=== PATIENT | female | born 1995 | race Caucasian/White ===

== ENCOUNTER → 2022-05-21 12:35 | Outpatient (CLI) | payer OTHER, SELFPAY ==
[2022-05-21 14:11] LABS: HCG,Quantitative 13598 mIU/ml (0-5.42)
== END ==
PROVIDERS: Visit Provider Nurse Practitioner Obstetrics & Gynecology
DX: N92.6 Irregular menstruation, unspecified (principal); Z32.00 Encounter for pregnancy test, result unknown
CPT/HCPCS: 36415; 84144; 84702

== ENCOUNTER → 2022-05-27 16:57 | Outpatient (CLI) | payer OTHER, SELFPAY | PROVIDERS: Visit Provider Nurse Practitioner Obstetrics & Gynecology | DX: Z34.90 Encounter for supervision of normal pregnancy, unspecified, unspecified trimester (principal) | CPT/HCPCS: 87086 ==

== ENCOUNTER → 2022-06-30 16:51 | Outpatient (CLI) | payer OTHER, SELFPAY ==
--- NOTE | 2022-06-30 17:05 | US_ITS ---
FINAL REPORT CLINICAL HISTORY: US OB before 14 wks for Dates FINDINGS: Sonographic images of the pelvis were obtained. There is a single living intrauterine . [place]-rump length measures 45 mm corresponding to 11 week 3 day gestation. Heartbeat is identified at 167 beats per minute. The right ovary measures up to 2.2 cm. The left ovary measures up to 1.7 cm. There is a 2.3 cm probable uterine fibroid. Small amount of free fluid is identified. IMPRESSION: Single living intrauterine with average ultrasound age of 11 week 3 days. Reviewed, Interpreted and Dictated by Panchito Byrnes III, MD Transcribed by Alivia Oconnor Authenticated and [facility]
== END ==
PROVIDERS: Visit Provider Nurse Practitioner Obstetrics & Gynecology
DX: O26.841 Uterine size-date discrepancy, first trimester (principal)
CPT/HCPCS: 76801

== ENCOUNTER → 2022-07-27 16:35 | Outpatient (CLI) | payer OTHER, SELFPAY ==
[2022-07-27 17:53] LABS: Basophils % 0.2 % (0.1-2.0); Eosinophils # 0.3 K/mm3 (0.0-0.4); Eosinophils % 1.9 % (0.1-12.0); Hematocrit 41.9 % (37.0-47.0); Hemoglobin 14.1 g/dL (12.2-16.2); Lymphocytes # 1.9 K/mm3 (0.7-4.5); Lymphocytes % 13.2 % (10-50); Mean Corpuscular HGB Conc 33.7 g/dL (31.8-35.4); Mean Corpuscular Hemoglobin 30.1 pg (27.0-31.2); Mean Corpuscular Volume 89.2 fl (81-99); Mean Platelet Volume 8.7 fl (7.4-10.4); Monocytes # 0.9 K/mm3 (0.1-1.0); Neutrophils # 11.6 K/mm3 (1.8-7.8); Neutrophils % 78.8 % (37.0-80.0); Platelet Count 261 K/mm3 (142-424); Red Blood Count 4.69 M/mm3 (4.20-5.40); Red Cell Distribution Width 12.7 % (11.5-17.5); White Blood Count 14.7 K/mm3 (4.8-10.8)
[2022-07-29 10:08] LABS: Rubella Antibodies, IgG 2.55 index (Immune >0.99)
[2022-07-29 11:26] LABS: Rapid Plasma Reagin Ab Titer Non Reactive (NonRea<1:1)
[2022-08-07 20:35] LABS: HIV Screen 4th Generation wRfx Non Reactive
[2022-08-07 20:36] LABS: Hepatitis B Surface Antigen Negative; Hepatitis C Antibody Non Reactive
== END ==
PROVIDERS: Visit Provider Nurse Practitioner Obstetrics & Gynecology
DX: Z34.90 Encounter for supervision of normal pregnancy, unspecified, unspecified trimester (principal)
CPT/HCPCS: 36415; 85025; 86593; 86703; 86762; 86850; 87340; 87380; G0432

== ENCOUNTER → 2022-09-09 13:50 | Outpatient (CLI) | payer OTHER, SELFPAY ==
--- NOTE | 2022-09-09 13:54 | US_ITS ---
PROCEDURE: US OB /MATERNAL DETAIL CLINICAL INDICATION: 20 week anatomy scan COMPARISON: No exams were available for comparison FINDINGS: Single viable intrauterine gestation. Breech position. Placenta: Anteriorplacenta grade 0. There is complete previa of the anterior placenta. This is seen with the transvaginal probe. There is average amount fluid. Maximum vertical pocket 6.2 cm The cervix appears satisfactory. Closed and measuring 3.8 cm in length. Complete survey performed and was unremarkable on the submitted images as in PACS. No discrete anomalies identified on survey imaging by technologist. Active fetus. Three-vessel cord with satisfactory umbilical cord insertion. 4- chamber heart noted. RVOT, LVOT, aortic arch appear normal. Survey of brain & ventricles Unremarkable. Cerebellum, cisterna magna, thalamus, choroid plexus appear normal. Face and neck survey unremarkable. Nose and lips appear normal. Profile normal. Nasion normal. Diaphragm and chest views unremarkable. Abdomen: Both kidneys noted and unremarkable. Stomach noted and satisfactory. Bladder visualized. Spine: Survey of the spine satisfactory with no anomalies identified nor imaged. Upper, thoracic and lower spine appear normal. Both arms and legs noted. Amniotic Fluid: Adequate. Maternal adnexa: No significant findings. Measurements: Average ultrasound age 21weeks 2days. Gestational Age 21weeks 2days Estimated due date by ultrasound age 1001/18/2023. Estimated weight 418g BPD = 21weeks 3days OFD = 21weeks 5days HC = 20weeks 6days AC = 22weeks FL = 20weeks 6days Growth Percentile= 48 percent Heart Rate = 135bpm Cerebellum = 20weeks 4days Humerus = 21weeks 1day HC/AC is 1.09 CI is 0.77 FL/BPD is 0.67 FL/AC is 0.2 IMPRESSION: 1. Viable fetus with normal anatomical scan. 2. Fetus is in the breech presentation with an anterior placenta. 3. THERE IS COMPLETE PLACENTA PREVIA. 4. Size and dates are appropriate for the assigned gestational age. Dictated by: Alireza Marrufo MD 09/11/2022 10:30 Alireza Marrufo MD in [place] 09/11/2022 10:30
== END ==
PROVIDERS: PCP Nurse Practitioner Obstetrics & Gynecology; Visit Provider Nurse Practitioner Obstetrics & Gynecology
DX: Z34.92 Encounter for supervision of normal pregnancy, unspecified, second trimester (principal); Z3A.20 20 weeks gestation of pregnancy
CPT/HCPCS: 76811

== ENCOUNTER → 2022-10-18 10:16 | Outpatient (CLI) | payer OTHER, SELFPAY ==
[2022-10-18 10:37] LABS: Basophils # 0.1 K/mm3 (0-0.2); Basophils % 0.5 % (0.1-2.0); Eosinophils # 0.3 K/mm3 (0.0-0.4); Eosinophils % 2.1 % (0.1-12.0); Hematocrit 36.4 % (37.0-47.0); Hemoglobin 11.9 g/dL (12.2-16.2); Lymphocytes # 2.2 K/mm3 (0.7-4.5); Lymphocytes % 15.9 % (10-50); Mean Corpuscular HGB Conc 32.7 g/dL (31.8-35.4); Mean Corpuscular Hemoglobin 30.1 pg (27.0-31.2); Mean Platelet Volume 8.5 fl (7.4-10.4); Monocytes % 7.4 % (1.7-9.3); Neutrophils # 10.3 K/mm3 (1.8-7.8); Neutrophils % 74.1 % (37.0-80.0); Platelet Count 247 K/mm3 (142-424); Red Blood Count 3.96 M/mm3 (4.20-5.40); Red Cell Distribution Width 13.3 % (11.5-17.5); White Blood Count 13.9 K/mm3 (4.8-10.8)
[2022-10-18 10:45] LABS: Glucose,Fasting 85 mg/dl (74-100)
[2022-10-18 12:31] LABS: Glucose 1 Hour 110 mg/dL (74-100)
== END ==
PROVIDERS: Visit Provider Nurse Practitioner Obstetrics & Gynecology
DX: Z34.92 Encounter for supervision of normal pregnancy, unspecified, second trimester (principal); Z3A.27 27 weeks gestation of pregnancy
CPT/HCPCS: 36415; 82951; 85025

== ENCOUNTER → 2022-10-25 13:04 | Outpatient (CLI) | payer OTHER, SELFPAY ==
--- NOTE | 2022-10-25 13:05 | US_ITS ---
PROCEDURE: US OB BIOPHYSICAL PROFILE CLINICAL INDICATION: follow up to growth and placenta previa COMPARISON: 09/09/2022 anatomy scan. FINDINGS: Transabdominal and transvaginal sonographic images were obtained of the uterus. From her established due date she is 28weeks 1day. The following parameters are obtained: Viable fetus in the breech presentation with an anterior placenta grade 2. There continues to be placenta previa with the placenta going beyond the cervix by approximately 2 cm on transvaginal views. Cervix measures 3.8 cm. Average ultrasound age is 28weeks 4days. Estimated due date by ultrasound is 01/13/2023. Estimated weight is 2lb 11.27oz, 1227 grams. 48 percentile. heart rate: 161bpm bpm. BPD: 28weeks 6days OFD: 28weeks 6days HC: 28 weeks 5 days AC: 28 weeks 6 days FL: 27 weeks 6 days HC/AC: 1.07 Cephalic index: 0.76 FL/BPD: 0.73 FL/AC: 0.21 Amniotic fluid index: 9.52cm Qualitative AFV: 2 breathing movements: 2 Gross body movements: 2 Tone: 2 Biophysical profile score: 8 No obvious anomalies evident.Kidneys, three-vessel cord, stomach, bladder, 4 chamber view appear normal. IMPRESSION: 1. Fetus in the breech presentation with an anterior placenta grade 2. 2. The placenta continues to be previa going beyond the cervix by approximately 2 cm. 3. There has been good interval growth. 4. Baby is active and biophysical profile 8/8. Good breathing movement seen. 5. Fluid is within normal limits. Dictated by: Alireza Marrufo MD 10/25/2022 17:07 Alireza Marrufo MD in [place] 10/25/2022 17:07
== END ==
PROVIDERS: Visit Provider Nurse Practitioner Obstetrics & Gynecology
DX: O44.03 Complete placenta previa NOS or without hemorrhage, third trimester (principal); Z3A.28 28 weeks gestation of pregnancy
CPT/HCPCS: 76816; 76819